=== PATIENT | female | born 1980 | race African-American/Black ===

== ENCOUNTER 2017-06-25 23:50 | Emergency (ER) | payer BC ==
[~2017-06-25] VITALS: Ht 165.1 cm; Wt 109.0 kg
[2017-06-26] MEDS ORDERED: SODIUM CHLORIDE 0.9% 1,000 ML IV ONE (00:15)
[2017-06-26 06:00] VITALS: BP 101/58
== END 2017-06-26 06:23 | disposition home or self-care (01) ==
LOC: ER 23:50
DX: F41.9 Anxiety disorder, unspecified (principal); F12.90 Cannabis use, unspecified, uncomplicated
CPT/HCPCS: 93005; 96360; 96361; 99285; J7030; Z7610